=== PATIENT | male | born 1950 | race Caucasian/White ===

== ENCOUNTER 2019-09-15 20:05 | Emergency (ER) | payer MEDICARE, BC ==
[~2019-09-15] VITALS: Ht 182.9 cm; Wt 54.4 kg
[2019-09-15 20:15] VITALS: BP 115/68
--- NOTE | 2019-09-15 21:10 | NUR ---
TECH AT BEDSIDE FOR WOUND CARE
[2019-09-15] MEDS ORDERED: LIDOCAINE 1%-EPI 1:100,000 20 ML VIAL ONE (21:25)
[2019-09-15] MEDS ORDERED: LIDOCAINE /MPF 1% VIAL 5 ML VIAL ONE (21:39)
== END 2019-09-15 22:10 | disposition home or self-care (01) ==
LOC: ER 20:08
DX: S61.011A Laceration without foreign body of right thumb without damage to nail, initial encounter (principal); W26.8XXA Contact with other sharp object(s), not elsewhere classified, initial encounter; Y93.89 Activity, other specified; Y92.89 Other specified places as the place of occurrence of the external cause; Y99.8 Other external cause status
CPT/HCPCS: 12002; 99282; A6403; J3490

== ENCOUNTER 2019-09-22 07:08 | Emergency (ER) | payer MEDICARE, BC ==
[~2019-09-22] VITALS: Ht 185.4 cm; Wt 86.2 kg
[2019-09-22 07:14] VITALS: BP 128/78
--- NOTE | 2019-09-22 07:22 | NUR ---
SUTURE IS REMOVED ON THE RIGHT THUMB.
--- NOTE | 2019-09-22 07:31 | NUR ---
BAND-AID APPLIED TO THE SUTURE-REMOVED SITE.
--- NOTE | 2019-09-22 07:32 | NUR ---
Patient discharged to home in stable condition. Written and verbal after care instructions given. Patient verbalizes understanding of instruction.
== END 2019-09-22 07:34 | disposition home or self-care (01) ==
LOC: ER 07:13
DX: S61.411D Laceration without foreign body of right hand, subsequent encounter (principal); X58.XXXD Exposure to other specified factors, subsequent encounter